=== PATIENT | female | born 2000 | race Two or more races ===

== ENCOUNTER 2025-02-08 09:45 | Observation (INO) | payer BC, MEDICAID, SELFPAY ==
[2025-02-08 10:04] VITALS: O2SAT 87
[2025-02-08 10:09] VITALS: BP 118/60; PULSE 99
[2025-02-08 10:38] VITALS: BP 118/60; RESP 18; RESP 98; TEMP 36.5; BMI 42.0
== END 2025-02-08 11:42 | disposition home or self-care (01) ==
PROVIDERS: Admitting Provider Obstetrics & Gynecology; Visit Provider Obstetrics & Gynecology
DX: O26.893 Other specified pregnancy related conditions, third trimester (principal); Z3A.38 38 weeks gestation of pregnancy; R10.2 Pelvic and perineal pain
CPT/HCPCS: 59025; 59899